=== PATIENT | male | born 1960 | race Caucasian/White ===

== ENCOUNTER 2018-10-05 19:37 | Emergency (ER) | payer OTHER ==
[~2018-10-05] VITALS: Ht 167.6 cm; Wt 81.8 kg
[2018-10-05] MEDS ORDERED: LIDOCAINE 1% 10 ML VIAL INJ ONE (21:00)
[2018-10-05] MEDS ORDERED: IBUPROFEN 800 MG TABLET PO ONE (21:00)
[2018-10-05] MEDS ORDERED: POVIDONE-IODINE 10% 15 ML SOLUTION UD TP ONE (21:00)
[2018-10-05 21:52] VITALS: BP 145/67
== END 2018-10-05 21:53 | disposition home or self-care (01) ==
LOC: EMS 19:38
DX: L02.414 Cutaneous abscess of left upper limb (principal); F17.210 Nicotine dependence, cigarettes, uncomplicated; F11.10 Opioid abuse, uncomplicated
CPT/HCPCS: 10060; 99283; J3490

== ENCOUNTER 2019-04-23 00:32 | Emergency (ER) | payer SELFPAY ==
[~2019-04-23] VITALS: Ht 165.1 cm; Wt 90.9 kg
[2019-04-23] MEDS ORDERED: KETOROLAC TROMETHAMINE 30 MG/ML VIAL IVP ONE (03:15)
[2019-04-23] MEDS ORDERED: ACETAMINOPHEN 500 MG TABLET PO ONE (03:15)
[2019-04-23] MEDS ORDERED: LIDOCAINE 5% TRANSDERMAL PATCH TD ONE (03:15)
[2019-04-23] MEDS ORDERED: DIAZEPAM 5 MG/ML 2 ML SYRINGE IVP ONE (03:15)
[2019-04-23 04:16] LABS: ANION GAP 5 mmol/L (8-16); CARBON DIOXIDE 31 mmol/L (22-29); CHLORIDE 104 mmol/L (98-107); CREATININE 0.96 mg/dL (0.60-1.30); GLOMERULAR FILTR. RATE CALC > 60 mL/min (>60); GLUCOSE,RANDOM 101 mg/dL (70-110); POTASSIUM 3.6 mmol/L (3.5-5.1); SODIUM SERUM 140 mmol/L (136-145); UREA NITROGEN, BLOOD 12 mg/dL (7-18)
[2019-04-23 04:24] LABS: LACTIC ACID 1.1 mmol/L (0.4-2.0)
[2019-04-23 04:40] LABS: ALANINE AMINOTRANSFERASE 30 U/L (12-78); ALBUMIN 3.2 g/dL (3.4-5.0); ALKALINE PHOSPHATASE 130 U/L (46-116); ASPARTATE AMINOTRANSFERASE 22 U/L (15-37); BILIRUBIN,TOTAL 0.3 mg/dL (0.1-1.0); C-REACTIVE PROTEIN QUANT 1.31 mg/dL (0.00-0.30); CREATINE KINASE, TOTAL ONLY 150 U/L (39-308)
[2019-04-23 04:42] LABS: BASOPHILS % (AUTO) 0.4 % (0.0-2.0); EOSINOPHILS % (AUTO) 3.2 % (1.0-6.0); HEMATOCRIT 37.2 % (41-53); HEMOGLOBIN 12.2 g/dL (13.5-17.5); LYMPHOCYTES # (AUTO) 2.1 K/uL (1.0-4.8); LYMPHOCYTES % (AUTO) 32.3 % (22.0-44.0); MEAN CORPUSCULAR HEMOGLOBIN 29.1 pg (26.0-34.0); MEAN CORPUSCULAR HGB CONC 32.8 G/dL (31.0-37.0); MEAN CORPUSCULAR VOLUME 89 fL (80-100); MONOCYTES # (AUTO) 0.6 K/uL (0.1-1.0); MONOCYTES % (AUTO) 9.8 % (2.0-9.0); NEUTROPHILS # (AUTO) 3.5 K/uL (1.8-7.7); NEUTROPHILS % (AUTO) 54.3 % (40.0-70.0); PLATELET COUNT (AUTO) 269 K/uL (150-450); RED BLOOD CELL COUNT(AUTO) 4.19 MIL/uL (4.50-5.90); RED CELL DISTRIBUTION WIDTH 16.5 % (11.5-14.5)
[2019-04-23] MEDS ORDERED: IOVERSOL 350 MG/ML 150 ML VIAL ONE (05:56)
[2019-04-23] MEDS ORDERED: SODIUM CHLORIDE 0.9% 100 ML ONE (05:56)
[2019-04-23 08:01] VITALS: BP 138/68
== END 2019-04-23 08:05 | disposition left against medical advice (07) ==
LOC: EMS 00:34
DX: G89.29 Other chronic pain (principal); M54.5 Low back pain; R20.2 Paresthesia of skin; R79.82 Elevated C-reactive protein (CRP); R70.0 Elevated erythrocyte sedimentation rate; L02.414 Cutaneous abscess of left upper limb; L02.413 Cutaneous abscess of right upper limb; F11.10 Opioid abuse, uncomplicated; I10 Essential (primary) hypertension; F17.210 Nicotine dependence, cigarettes, uncomplicated
CPT/HCPCS: 36415; 72129; 72132; 80053; 82550; 83605; 85025; 85651; 86140; 87040; 96374; 96375; 99284; J1885 ×2; J7050; Q9967

== ENCOUNTER 2019-09-25 13:31 | Emergency (ER) | payer MEDICAID ==
[~2019-09-25] VITALS: Ht 165.1 cm; Wt 90.9 kg
[2019-09-25] MEDS ORDERED: LIDOCAINE 5% TRANSDERMAL PATCH TD ONE (16:45)
[2019-09-25] MEDS ORDERED: OxyCODONE HCL/ACETAMINOPHEN 5-325 MG TABLET PO ONE (16:45)
[2019-09-25 17:37] VITALS: BP 139/77
== END 2019-09-25 17:43 | disposition home or self-care (01) ==
LOC: EMS 13:32
DX: G89.29 Other chronic pain (principal); M54.5 Low back pain; I10 Essential (primary) hypertension; F11.90 Opioid use, unspecified, uncomplicated; Z98.890 Other specified postprocedural states

== ENCOUNTER 2020-08-21 01:27 | Emergency (ER) | payer MEDICAID ==
[~2020-08-21] VITALS: Ht 165.1 cm; Wt 81.8 kg
[2020-08-21 03:09] VITALS: BP 132/67
[2020-08-21] MEDS ORDERED: SULFAMETHOX/TRIMETH DS 800-160 MG/TABLET PO ONE (03:15)
== END 2020-08-21 03:40 | disposition home or self-care (01) ==
LOC: EMS 01:29
DX: L02.413 Cutaneous abscess of right upper limb (principal); M79.89 Other specified soft tissue disorders; I10 Essential (primary) hypertension; F17.210 Nicotine dependence, cigarettes, uncomplicated; F11.90 Opioid use, unspecified, uncomplicated

== ENCOUNTER 2020-09-27 06:16 | Emergency (ER) | payer OTHER ==
[~2020-09-27] VITALS: Ht 165.1 cm; Wt 86.4 kg
[2020-09-27 07:15] VITALS: BP 122/72
== END 2020-09-27 07:34 | disposition home or self-care (01) ==
LOC: EMS 06:19
DX: L02.413 Cutaneous abscess of right upper limb (principal); L02.414 Cutaneous abscess of left upper limb; I10 Essential (primary) hypertension; F11.20 Opioid dependence, uncomplicated; F17.210 Nicotine dependence, cigarettes, uncomplicated
CPT/HCPCS: 99406

== ENCOUNTER 2021-02-15 05:55 | Emergency (ER) | payer OTHER ==
[~2021-02-15] VITALS: Ht 165.1 cm; Wt 81.8 kg
[2021-02-15] MEDS ORDERED: ACETAMINOPHEN 500 MG TABLET PO ONE (06:45)
[2021-02-15] MEDS ORDERED: DOXYCYCLINE HYCLATE 100 MG TABLET PO ONE (06:45)
[2021-02-15 06:51] VITALS: BP 138/66
== END 2021-02-15 06:55 | disposition home or self-care (01) ==
LOC: EMS 05:56
DX: L03.114 Cellulitis of left upper limb (principal); L03.113 Cellulitis of right upper limb; F17.210 Nicotine dependence, cigarettes, uncomplicated; F11.90 Opioid use, unspecified, uncomplicated
CPT/HCPCS: 99283

== ENCOUNTER 2021-03-22 13:11 | Emergency (ER) | payer OTHER ==
[~2021-03-22] VITALS: Ht 167.6 cm; Wt 81.8 kg
[2021-03-22 15:10] VITALS: BP 145/76
== END 2021-03-22 15:19 | disposition home or self-care (01) ==
LOC: EMS 13:13
DX: L03.114 Cellulitis of left upper limb (principal); F11.20 Opioid dependence, uncomplicated; I10 Essential (primary) hypertension; F17.210 Nicotine dependence, cigarettes, uncomplicated
CPT/HCPCS: 99283; Z7502

== ENCOUNTER 2024-04-21 10:59 | Emergency (ER) | payer MEDICAID, OTHER ==
[~2024-04-21] VITALS: Ht 165.1 cm; Wt 95.5 kg
[2024-04-21 11:18] VITALS: TEMP 98.1
[2024-04-21 11:52] LABS: BASOPHILS % (AUTO) 0.4 % (0.0-2.0); EOSINOPHILS % (AUTO) 3.4 % (1.0-6.0); HEMATOCRIT 40.3 % (41-53); HEMOGLOBIN 13.4 g/dL (13.5-17.5); LYMPHOCYTES # (AUTO) 2.3 K/uL (1.0-4.8); LYMPHOCYTES % (AUTO) 31.4 % (22.0-44.0); MEAN CORPUSCULAR HEMOGLOBIN 31.7 pg (26.0-34.0); MEAN CORPUSCULAR HGB CONC 33.3 G/dL (31.0-37.0); MEAN CORPUSCULAR VOLUME 95 fL (80-100); MONOCYTES # (AUTO) 0.6 K/uL (0.1-1.0); MONOCYTES % (AUTO) 7.6 % (2.0-9.0); NEUTROPHILS # (AUTO) 4.2 K/uL (1.8-7.7); NEUTROPHILS % (AUTO) 57.2 % (40.0-70.0); PLATELET COUNT (AUTO) 239 K/uL (150-450); RED BLOOD CELL COUNT(AUTO) 4.22 MIL/uL (4.50-5.90); RED CELL DISTRIBUTION WIDTH 13.3 % (11.5-14.5); WHITE BLOOD COUNT (AUTO) 7.4 K/uL (4.5-11.0)
[2024-04-21 12:04] LABS: ANION GAP 4 mmol/L (8-16); CALCIUM, TOTAL 8.4 mg/dL (8.8-10.5); CARBON DIOXIDE 32 mmol/L (22-29); CHLORIDE 101 mmol/L (98-107); CREATININE 0.99 mg/dL (0.60-1.30); GLOMERULAR FILTR. RATE CALC > 60 mL/min (>60); GLUCOSE,RANDOM 136 mg/dL (70-110); POTASSIUM 3.9 mmol/L (3.5-5.1); SODIUM SERUM 137 mmol/L (136-145); UREA NITROGEN, BLOOD 11 mg/dL (7-18)
[2024-04-21 12:05] LABS: LIPASE 41 U/L (16-77)
[2024-04-21 12:06] LABS: APPEARANCE,URINE CLEAR (CLEAR); BILIRUBIN,URINE NEGATIVE (NEGATIVE); COLOR,URINE YELLOW (YELLOW); GLUCOSE, URINE (UA) NEGATIVE (NEGATIVE); KETONES,URINE NEGATIVE (NEGATIVE); LEUKOCYTE ESTERASE ,URINE NEGATIVE (NEGATIVE); NITRATE,URINE NEGATIVE (NEGATIVE); OCCULT BLOOD,URINE NEGATIVE (NEGATIVE); PH,URINE 6.5 (5.0-8.0); PH,URINE DRUG SCREEN 6.5 (5.0-8.0); PROTEIN,URINE TRACE mg/dL (NEGATIVE); SPECIFIC GRAVITIY, URINE 1.031 (1.003-1.030)
[2024-04-21 12:26] LABS: ALCOHOL, URINE DRUG SCREEN NEGATIVE (NEGATIVE); AMPHET/METH SCREEN,URINE POSITIVE (NEGATIVE); BARBITURATE SCREEN, URINE NEGATIVE (NEGATIVE); BENZODIAZEPINES SCREEN,URINE NEGATIVE (NEGATIVE); CANNABINOID SCREEN,URINE NEGATIVE (NEGATIVE); COCAINE SCREEN,URINE NEGATIVE (NEGATIVE); METHADONE SCREEN, URINE NEGATIVE (NEGATIVE); OPIATE SCREEN,URINE NEGATIVE (NEGATIVE); PHENCYCLIDINE SCREEN,URINE NEGATIVE (NEGATIVE)
[2024-04-21 13:34] LABS: ALANINE AMINOTRANSFERASE 61 U/L (12-78); ALBUMIN 3.1 g/dL (3.4-5.0); ALKALINE PHOSPHATASE 140 U/L (46-116); ASPARTATE AMINOTRANSFERASE 35 U/L (15-37); BILIRUBIN,TOTAL 0.2 mg/dL (0.1-1.0)
[2024-04-21 13:59] LABS: TROPONIN I-HIGH SENSITIVITY 5 ng/L (<76)
[2024-04-21] MEDS: IOHEXOL 9 MG/ML 500 ML BOTTLE PO ONE (14:28)
[2024-04-21] MEDS ORDERED: SODIUM CHLORIDE 0.9% 100 ML ONE (15:03)
[2024-04-21] MEDS ORDERED: IOHEXOL 350 MG/ML 100 ML VIAL ONE (15:03)
[2024-04-21] MEDS ORDERED: 0.9% SODIUM CHLORIDE 10 ML SYRINGE IVP ONE (15:03)
[2024-04-21 17:58] VITALS: BP 132/74; PULSE 78; RESP 18
== END 2024-04-21 18:31 | disposition home or self-care (01) ==
LOC: EMS 10:59
DX: R10.13 Epigastric pain (principal); F15.10 Other stimulant abuse, uncomplicated; F11.20 Opioid dependence, uncomplicated; F17.210 Nicotine dependence, cigarettes, uncomplicated; I10 Essential (primary) hypertension
CPT/HCPCS: 80048; 80076; 81003; 83690; 84484; 85025; 36415; 71045; 74177; 99285; 93005; 80307; Q9967 ×2; J7050; X7700